=== PATIENT | male | born 1955 | race Caucasian/White ===

== ENCOUNTER 2017-11-15 07:37 | Outpatient (REF) | payer BC, SELFPAY ==
[2017-11-15 12:35] LABS: Anion Gap 7.7 mmol/L (3-11); BUN 14 mg/dL (7-18); CO2 29.3 mmol/L (21.0-32.0); CREATININE 1.16 mg/dL (0.70-1.30); Calcium 8.5 mg/dL (8.5-10.1); Chloride 104 mmol/L (98-107); Cholesterol 198 mg/dL (50-200); Glucose 160 mg/dL (70-100); HDL Cholesterol 51 mg/dL (40-60); LDL CHOLESTEROL 117 mg/dL (<100); Potassium 4.8 mmol/L (3.5-5.1); Sodium 141 mmol/L (136-145); Triglyceride 145 mg/dL (30-150)
[2017-11-15 12:40] LABS: Hemoglobin A1C 7.3 % (4.5-6.2)
== END 2017-11-15 07:57 ==
LOC: NCHCN 07:37
PROVIDERS: PCP Internal Medicine; Visit Provider Nurse Practitioner Family
DX: E78.5 Hyperlipidemia, unspecified (principal); I10 Essential (primary) hypertension; E11.9 Type 2 diabetes mellitus without complications
CPT/HCPCS: 80048; 80061; 83721; 83036

== ENCOUNTER 2018-11-18 10:08 | Outpatient (REF) | payer BC, SELFPAY ==
[2018-11-18 13:37] LABS: COMMENT (LAB VIEW ONLY) 149.45 mg/dL; Microalb ug/mg Crea 8.8 ug/mg Cr
== END 2018-11-18 10:28 ==
LOC: NCHCN 10:08
PROVIDERS: PCP Nurse Practitioner Family; Visit Provider Nurse Practitioner Family
DX: E11.9 Type 2 diabetes mellitus without complications (principal)
CPT/HCPCS: 82043; 82570

== ENCOUNTER 2019-02-14 12:36 | Outpatient (REF) | payer BC, SELFPAY ==
[2019-02-14 13:18] LABS: Hemoglobin A1C 7.4 % (3.8-5.6)
[2019-02-14 13:23] LABS: Anion Gap 8.1 mmol/L (3-11); BUN 17 mg/dL (7-18); CO2 29.9 mmol/L (21.0-32.0); CREATININE 1.03 mg/dL (0.70-1.30); Calcium 9.2 mg/dL (8.5-10.1); Calculated LDL 147 mg/dL; Chloride 102 mmol/L (98-107); Cholesterol 223 mg/dL (<200); Glucose 175 mg/dL (74-106); HDL Cholesterol 54 mg/dL (40-60); Potassium 4.6 mmol/L (3.5-5.1); Sodium 140 mmol/L (136-145); Triglyceride 112 mg/dL (<150)
== END 2019-02-14 12:56 ==
LOC: NCHCN 12:36
PROVIDERS: PCP Nurse Practitioner Family; Visit Provider Nurse Practitioner Family
DX: E11.9 Type 2 diabetes mellitus without complications (principal); I10 Essential (primary) hypertension; E78.5 Hyperlipidemia, unspecified
CPT/HCPCS: 80048; 80061; 83036

== ENCOUNTER 2020-04-23 11:56 | Outpatient (REF) | payer BC, SELFPAY ==
[2020-04-23 19:31] LABS: Hemoglobin A1C 7.7 % (<5.7)
[2020-04-23 19:43] LABS: Anion Gap 11.4 mmol/L (3-11); BUN 16 mg/dL (7-18); CO2 24.6 mmol/L (21.0-32.0); CREATININE 1.1 mg/dL (0.70-1.30); Calcium 9.3 mg/dL (8.5-10.1); Calculated LDL 97 mg/dL (<100); Chloride 106 mmol/L (98-107); Cholesterol 179 mg/dL (<200); Glucose 168 mg/dL (74-106); HDL Cholesterol 50 mg/dL (40-60); Potassium 4.7 mmol/L (3.5-5.1); Sodium 142 mmol/L (136-145); Triglyceride 161 mg/dL (<150)
[2020-04-23 19:50] LABS: COMMENT (LAB VIEW ONLY) 145.99 mg/dL; Microalb ug/mg Crea 11.9 ug/mg Cr
== END 2020-04-23 11:57 | disposition home or self-care (01) ==
LOC: NCHCN 11:56
PROVIDERS: PCP Nurse Practitioner Family; Visit Provider Nurse Practitioner Family
DX: E11.9 Type 2 diabetes mellitus without complications (principal); I10 Essential (primary) hypertension
CPT/HCPCS: 80048; 80061; 82043; 82570; 83036

== ENCOUNTER 2020-11-14 11:52 | Outpatient (CLI) | payer BC, SELFPAY ==
--- NOTE | 2020-11-14 | DI.RAD_ITS ---
Exam(s) XR FOOT LT COMPLETE EXAM: XR FOOT LT COMPLETE CLINICAL HISTORY: PAIN IN LT FOOT, M79.672, CONCERN FOR SPRAIN VS FRACTURE. TECHNIQUE: 2D digital imaging was performed. COMPARISON: No exams were available for comparison FINDINGS: Three views reveal no evidence of fracture nor diastasis of the Lisfranc joint. There is advanced na rrowing degenerative changes in the great toe metatarsophalangeal joint. Also osteophytes at this le sha. Small inferior calcaneal spur is noted. IMPRESSION: DATA REPOSITORY: RADIATION DOSE DELIVERED:
--- NOTE | 2020-11-14 | DI.RAD_ITS ---
Exam(s) XR ANKLE LT COMPLETE EXAM: XR ANKLE LT COMPLETE CLINICAL HISTORY: PAIN IN LT ANKLE, M25.572, CONCERN FOR SPRAIN VS FRACTURE. TECHNIQUE: 2D digital imaging was performed. COMPARISON: No exams were available for comparison FINDINGS: There is no evidence of acute fracture nor widening of the mortise. Prominent posterior process of t he talus noted. No evidence of osseous tarsal coalition. IMPRESSION: DATA REPOSITORY: RADIATION DOSE DELIVERED:
--- NOTE | 2020-11-14 17:05 | DI.VRAD_ITS ---
PROCEDURE INFORMATION: Exam: XR Left Foot Exam date and time: 11/14/2020 4:41 PM Age: 64 years old Clinical indication: Other: Pain in lt ankle, m25.572, concern for sprain vs fracture TECHNIQUE: Imaging protocol: XR Left foot. Views: 3 or more views. COMPARISON: CR XR ANKLE LT COMPLETE 11/14/2020 4:36 PM FINDINGS: Bones/joints: There is severe joint space narrowing with eburnation of bone involving the 1st MTP articulation. Hypertrophic spurring noted. Minimal inferior calcaneal spur noted. Soft tissues: Normal. IMPRESSION: Degenerative changes. No evidence for fracture. Dictated and Authenticated by: Izzy Parish MD. Ordering:ROSALINA Qiu MD
--- NOTE | 2020-11-14 17:05 | DI.VRAD_ITS ---
PROCEDURE INFORMATION: Exam: XR Left Ankle Exam date and time: 11/14/2020 4:41 PM Age: 64 years old Clinical indication: Other: Pain in lt foot, m79.672, concern for sprain vs fracture TECHNIQUE: Imaging protocol: XR Left ankle. Views: 3 or more views. COMPARISON: No relevant prior studies available. FINDINGS: Bones/joints: Normal. Soft tissues: Normal. IMPRESSION: No evidence for fracture. Dictated and Authenticated by: Izzy Parish MD. Ordering:ROSALINA Qiu MD
== END 2020-11-14 12:12 ==
PROVIDERS: PCP Nurse Practitioner Family; Visit Provider Physician Assistant Medical
DX: M25.572 Pain in left ankle and joints of left foot (principal); M79.672 Pain in left foot; M19.072 Primary osteoarthritis, left ankle and foot
CPT/HCPCS: 73610; 73630

== ENCOUNTER 2020-11-14 16:53 | Outpatient (REF) | payer BC, SELFPAY ==
[2020-11-14 21:22] LABS: Abs Immature Grans 0.02 10^3/uL (0.0-0.06); Absolute Basophil Count 0.08 10^3/uL (0.0-0.2); Absolute Eosinophil Count 0.09 10^3/uL (0.0-0.7); Absolute Lymphocyte Count 1.96 10^3/uL (1.2-3.4); Basophils % 1.2; Eosinophils % 1.4; HCT 41.5 % (40.0-50.0); HGB 14.1 g/dL (13.5-17.5); Immature Grans % 0.3; Lymphocytes % 30.4; MCH 31.3 pg (27.0-33.0); MCV 92.2 fL (80-95); MPV 12.8 fL (8.0-11.0); Monocytes % 9.3; Neutrophils % 57.4; Nucleated RBC 0 %; Platelet Count 184 10^3/uL (130-400); RDW 11.7 % (11.8-14.1); RDW-SD 39.6 fL; WBC 6.45 10^3/uL (4.4-10.8)
[2020-11-14 22:35] LABS: Anion Gap 8.6 mmol/L (3-11); BUN 15 mg/dL (7-18); CO2 27.4 mmol/L (21.0-32.0); CREATININE 1.1 mg/dL (0.70-1.30); Calcium 8.9 mg/dL (8.5-10.1); Chloride 107 mmol/L (98-107); Glucose 165 mg/dL (74-106); Potassium 4.3 mmol/L (3.5-5.1); Sodium 143 mmol/L (136-145)
== END 2020-11-14 16:54 | disposition home or self-care (01) ==
LOC: LBN 16:53
PROVIDERS: PCP Nurse Practitioner Family; Visit Provider Physician Assistant Medical
DX: Z13.9 Encounter for screening, unspecified (principal)
CPT/HCPCS: 80048; 85025

== ENCOUNTER 2021-05-23 15:08 | Outpatient (REF) | payer BC, SELFPAY ==
[2021-05-29 06:36] LABS: ACh Receptor(Muscle)Binding Ab 0.12 nmol/L (<=0.02)
== END 2021-05-23 15:09 | disposition home or self-care (01) ==
LOC: LBN 15:08
PROVIDERS: PCP Nurse Practitioner Family; Visit Provider Psychiatry & Neurology Neurology
DX: H02.401 Unspecified ptosis of right eyelid (principal)
CPT/HCPCS: 83519

== ENCOUNTER 2021-08-26 14:06 | Outpatient (REF) | payer BC, SELFPAY ==
[2021-08-26 16:05] LABS: Anion Gap 12.2 mmol/L (3-11); BUN 28 mg/dL (7-18); CO2 21.8 mmol/L (21.0-32.0); CREATININE 1.3 mg/dL (0.70-1.30); Calcium 9.4 mg/dL (8.5-10.1); Calculated LDL 85 mg/dL (<100); Chloride 102 mmol/L (98-107); Cholesterol 171 mg/dL (<200); Estimated GFR 55.75 (mL/min/1.73m2); Glucose 169 mg/dL (74-106); HDL Cholesterol 62 mg/dL (40-60); Potassium 5.3 mmol/L (3.5-5.1); Sodium 136 mmol/L (136-145); Triglyceride 123 mg/dL (<150)
== END 2021-08-26 14:07 | disposition home or self-care (01) ==
LOC: NCHCN 14:06
PROVIDERS: PCP Nurse Practitioner Family; Visit Provider Nurse Practitioner Family
DX: I10 Essential (primary) hypertension (principal); E78.5 Hyperlipidemia, unspecified; E11.9 Type 2 diabetes mellitus without complications; G70.00 Myasthenia gravis without (acute) exacerbation
CPT/HCPCS: 80048; 80061

== ENCOUNTER 2022-12-08 16:50 | Outpatient (REF) | payer BC, SELFPAY ==
[2022-12-08 16:57] LABS: Abs Immature Grans 0.02 10^3/uL (0.0-0.06); Absolute Basophil Count 0.09 10^3/uL (0.0-0.2); Absolute Eosinophil Count 0.07 10^3/uL (0.0-0.7); Absolute Lymphocyte Count 1.75 10^3/uL (1.2-3.4); Absolute Neutrophil Count 3.66 10^3/uL (1.2-6.7); Basophils % 1.5; Eosinophils % 1.1; HCT 45.7 % (40.0-50.0); HGB 15.7 g/dL (13.5-17.5); Immature Grans % 0.3; Lymphocytes % 28.3; MCH 31.6 pg (27.0-33.0); MCHC 34.4 % (32.0-36.0); MCV 92 fL (80-95); MPV 12.5 fL (8.0-11.0); Monocytes % 9.7; Neutrophils % 59.1; Platelet Count 209 10^3/uL (130-400); RBC 4.97 10^6/uL (4.36-5.78); RDW 11.7 % (11.8-14.1); RDW-SD 39.4 fL; WBC 6.19 10^3/uL (4.4-10.8)
[2022-12-08 17:10] LABS: ALT 32 U/L (16-63); AST 19 U/L (15-37); Albumin 3.6 g/dL (3.4-5.0); Alkaline Phosphatase 83 U/L (46-116); Anion Gap 10.3 mmol/L (3-11); BUN 27 mg/dL (7-18); Bilirubin, Total 0.9 mg/dL (0.2-1.0); CO2 23.7 mmol/L (21.0-32.0); CREATININE 1.1 mg/dL (0.70-1.30); Calculated LDL 117 mg/dL (<100); Chloride 104 mmol/L (98-107); Cholesterol 200 mg/dL (<200); Estimated GFR 74.96 (mL/min/1.73m2); Glucose 148 mg/dL (74-106); HDL Cholesterol 58 mg/dL (40-60); Potassium 4.6 mmol/L (3.5-5.1); Sodium 138 mmol/L (136-145); Total Protein 7.3 g/dL (6.4-8.2); Triglyceride 128 mg/dL (<150)
== END 2022-12-08 16:51 | disposition home or self-care (01) ==
LOC: NCHCN 16:50
PROVIDERS: PCP Nurse Practitioner Family; Visit Provider Nurse Practitioner Family
DX: E11.9 Type 2 diabetes mellitus without complications (principal); I10 Essential (primary) hypertension; E78.5 Hyperlipidemia, unspecified; K21.9 Gastro-esophageal reflux disease without esophagitis
CPT/HCPCS: 80053; 80061; 85025

== ENCOUNTER 2023-03-10 13:13 | Outpatient (REF) | payer MEDICARE, BC, SELFPAY ==
[2023-03-10 15:55] LABS: Hemoglobin A1C 6.9 % (<5.7)
== END 2023-03-10 13:14 | disposition home or self-care (01) ==
LOC: NCHCN 13:13
PROVIDERS: PCP Nurse Practitioner Family; Visit Provider Nurse Practitioner Family
DX: E11.9 Type 2 diabetes mellitus without complications (principal)
CPT/HCPCS: 83036

== ENCOUNTER → 2023-09-21 09:27 | Outpatient (BNVA) | payer MEDICARE, BC, SELFPAY | PROVIDERS: Referring Provider Nurse Practitioner Family; Visit Provider Psychiatry & Neurology Neurology | DX: H02.401 Unspecified ptosis of right eyelid (principal); G70.00 Myasthenia gravis without (acute) exacerbation; R26.89 Other abnormalities of gait and mobility | CPT/HCPCS: 99442 ==

== ENCOUNTER 2023-10-28 03:40 | Outpatient (CLI) | payer MEDICARE, BC, SELFPAY ==
[2023-10-28 15:38] LABS: ALT 25 U/L (16-63); AST 12 U/L (15-37); Albumin 3.2 g/dL (3.4-5.0); Alkaline Phosphatase 96 U/L (46-116); Anion Gap 12.5 mmol/L (3-11); BUN 21 mg/dL (7-18); Bilirubin, Total 0.58 mg/dL (0.2-1.0); CO2 22.5 mmol/L (21.0-32.0); CREATININE 1.5 mg/dL (0.70-1.30); Calcium 8.7 mg/dL (8.5-10.1); Calculated LDL 50 mg/dL (<100); Chloride 103 mmol/L (98-107); Cholesterol 132 mg/dL (<200); Estimated GFR 51.35 (mL/min/1.73m2); Glucose 317 mg/dL (74-106); HDL Cholesterol 46 mg/dL (40-60); Potassium 4.1 mmol/L (3.5-5.1); Sodium 138 mmol/L (136-145); Triglyceride 183 mg/dL (<150)
[2023-10-31 19:16] LABS: Anaplasma phagocytophilum Negative (Negative); B. miyamotoi PCR Negative (Negative); Babesia divergens/MO-1 Negative (Negative); Babesia duncani Negative (Negative); Babesia microti Negative (Negative); Ehrlichia chaffeensis Negative (Negative); Ehrlichia ewingii/canis Negative (Negative); Ehrlichia muris eauclairensis Negative (Negative)
== END 2023-10-28 03:41 | disposition home or self-care (01) ==
LOC: LBO 03:40
PROVIDERS: PCP Nurse Practitioner Family; Visit Provider Nurse Practitioner Family
DX: W57.XXXA Bitten or stung by nonvenomous insect and other nonvenomous arthropods, initial encounter (principal); E78.5 Hyperlipidemia, unspecified; I10 Essential (primary) hypertension; S60.562A Insect bite (nonvenomous) of left hand, initial encounter
CPT/HCPCS: 36415; 80053; 80061; 87798

== ENCOUNTER 2023-11-19 07:32 | Day surgery (SDC) | payer MEDICARE, BC, SELFPAY ==
--- NOTE | 2023-11-18 19:05 | W.PM.DSUDISC ---
Date of service: 11/19/23 Time of Service: 10:21 Discharge Plan Disposition Patient Disposition: Home Condition: Good Discharge Details Reason For Visit: screening colonoscopy Attending Provider: Aakash Hernandez Primary Care Provider: MIRIAM PEREYRA Home Meds and New Rx's Prescriptions: Continued Ozempic 1 mg/dose (2 mg/1.5 mL) pen injector 1 mg subcut QWEEK cimetidine 200 mg tablet 200 mg PO QACHS ezetimibe 10 mg tablet 10 mg PO DAILY pyridostigmine bromide 60 mg tablet 60 mg PO BID Qty: 180 3RF metformin 500 MG tablet 1,000 mg PO BID sildenafil [Viagra] 100 mg tablet 100 mg PO DAILY PRN Patient Comments: Take 0.5-1 tab by mouth as needed insulin glargine [Lantus Solostar U-100 Insulin] 100 unit/mL (3 mL) insulin pen 40 unit subcut QPM Patient Comments: per med list [facility] 03/31/21 lisinopril 10 mg tablet 20 mg PO BID Patient Comments: per med list sent 03/31/21 from [facility] Discontinued bisacodyl [Dulcolax (bisacodyl)] 5 mg tablet,delayed release (DR/EC) 5 mg PO ONCE Qty: 4 0RF Rx Instructions: Take per colonoscopy instructions provided by ordering providers office polyethylene glycol 3350 17 gram/dose powder 17 g PO ONCE Qty: 238 0RF Rx Instructions: Take per colonoscopy instructions provided by ordering providers office Discharge Instructions Instructions: Colon polyps, Diverticulosis Additional Instructions: Arcenio, it was great meeting you today, and I hope you are comfortable during the procedure. I did find and remove a total of 7 polyps today. This will be sent off for testing. Once I know the nature of the polyps, I will be in touch regarding timing of your next colonoscopy. At the current time, I am inclined to repeat it at the 1 year home given the nature of the polyp that you had removed previously, combined with the number of polyps today. However, let me see the results formally before making any final decisions. If you need anything, or have any questions in the meantime, please do not hesitate to ask. 1. If tolerated, consume a soft, low fiber diet for 1-2 days. 2[address] Do not drive, drink alcohol, operate machinery, make critical decisions, or do activities that require coordination or balance for 24 hours. 3. Because air was put into your colon during the procedure, expelling air from your rectum (passing gas or farting) is normal. 4. You may not have a bowel movement for 1-3 days because of the colonoscopy prep. This is normal. 5. Go directly to the emergency room if you notice any of the following: Develop chills (warm to touch), or if you have a thermometer and your temperature is above 101 Difficulty breathing or difficultly swallowing Persistent vomiting Severe abdominal pain, other than gas cramps Severe chest pain Black, tarry stools Any bleeding ? exceeding one tablespoon 6. Call your physician if the site where your intravenous was started becomes red, swollen, painful, and warm to touch. 7. Your physician has reviewed your pre-procedure medications. Please continue to take those medications as previously ordered. You will be given specific information/education regarding any changes to your medications before leaving. Activity:: Activity as Tolerated Diet:: As Tolerated Discharge Orders Discharge Orders: Discharge Order (Routine); Ordered 11/18/23 Ordered By: Aakash Hernandez DS: Diagnosis Discharge Diagnosis (1) Encounter for screening colonoscopy: Status: Acute Asessment and Plan: Follow-up on polypectomy results
--- NOTE | 2023-11-18 19:07 | W.COLOREPORT ---
Date of service: 11/19/23 Time of Service: 10:22 Colonoscopy Report Date of procedure: 11/19/23 Pre-op diagnosis general: screening colonsocopy Post-op diagnosis procedure note: other (Colon polyps diverticulosis) Procedure: colonoscopy With polypectomy Surgeon: Aakash Hernandez Anesthesia Type: General:No Airway Estimated blood loss (mL): 10 Pathology: other (Ascending colon polyps x 2, polyps at 85, 75, 70, 40, and 30 cm) Complications: None Disposition: same day Indications: Troy is a 67 year old man with a history of adenomatous polyps who needs his next screening colonoscopy Prep: Miralax/Dulcolax Procedure Start Time: 09:32 Procedure End Time: 10:15 Retraction Time: 35 Findings: Sigmoid diverticulosis, colon polyps that 85, 75, 70, 40, and 30 cm, and 2 ascending colon polyps Procedure Description: After the induction of anesthesia, and with the patient in left lateral decubitus position, I began by performing an external anorectal exam.? Perineum and skin were normal, as was the anal verge.? There was no evidence of external hemorrhoids.? Next, I performed a digital rectal exam.? I did not appreciate any abnormal findings.? Next, I advanced a colonoscope into the rectal vault.? I performed retroflexion.? This appeared normal.? Using insufflation, I then advanced the colonoscope beyond the rectal folds and into the sigmoid colon before advancing towards the cecum.? There is sigmoid diverticulosis.? The scope was noted to be in the cecum by identification of the ileocecal valve and appendiceal orifice.? In the ascending colon were 2 polyps. 1 was about 0.25 cm, the other was about 0.75 cm. The smaller of the 2 was removed with cold forceps, and the larger polyp was removed with a energize snare polypectomy. Larger polyp was 2 large to removed by way of suction polypectomy, therefore it was retrieved with suction along the length of the colon. I reintroduced the colonoscope, and advance back to the cecum. I then began withdrawing the colonoscope using repeated irrigation as necessary for full evaluation of the colonic mucosa. I found polyps at 85, 75, 70, 40, and 30 cm from the anus. The polyp at 75 cm was about 1 cm in size. This was also too large to remove through the suction port, and needed to be retrieved manually. The other polyps were removed with a combination of cold forcep, as well as cold snare polypectomy with suction. When the scope was withdrawn to the level of the rectum, great care was taken to examine portions of the rectal folds.? Finally, the scope was withdrawn and the patient was brought to the same-day surgery recovery unit as the anesthetic wore off. ?The findings and instructions were shared with the patient prior to discharge. [place] Bowel Prep [place] Bowel Prep Right Colon: 2 Left Colon: 2 Transverse Colon: 2 Total Score: 6
[2023-11-19 08:02] VITALS: BP 129/97; PULSE 94; RESP 16; TEMP 36.5; O2SAT 99
[2023-11-19] MEDS: Lactated Ringers 1,000 ML 80 ML IV (08:09)
--- NOTE | 2023-11-19 08:44 | ANES.PREOP_ITS ---
General Info Date of Service Date Performed: 11/19/23 Height: 6 ft 1 in Weight: 99.337 kg Body Mass Index (BMI): 28.8 Surgical Procedure: Operation Date: 11/19/23 09:20 Proposed Procedure Side Surgeon manjinder Hernandez MD Meds Allergies and Home Medications Allergies Allergy/AdvReac Type Severity Reaction Status Date / Time No Known Allergies Allergy Verified 11/19/23 07:56 Home Medication ?Medication ?Instructions ?Recorded metformin 500 mg tablet 1,000 mg PO BID 12/11/13 insulin glargine 100 unit/mL (3 40 unit subcut QPM 04/16/21 mL) subcutaneous pen (Lantus Solostar U-100 Insulin) sildenafil 100 mg tablet (Viagra) 100 mg PO DAILY PRN 04/16/21 semaglutide 1 mg/dose (2 mg/1.5 1 mg subcut QWEEK 09/22/22 mL) subcutaneous pen injector (Ozempic) cimetidine 200 mg tablet 200 mg PO QACHS 09/21/23 ezetimibe 10 mg tablet 10 mg PO DAILY 09/21/23 pyridostigmine bromide 60 mg tablet 60 mg PO BID #180 tabs 09/21/23 lisinopril 10 mg tablet 20 mg PO BID 10/12/23 Current Visit Medications: Current Medications Generic Name Dose Route Start Last Admin Trade Name Freq PRN Reason Stop Dose Admin Hyoscyamine Sulfate 0.125 mg 11/18/23 19:08 Hyoscyamine 0.125 Mg Sl/Oral/Chew SL 12/18/23 19:07 DIRECTED PRN Ringer's Solution 1,000 mls @ 80 mls/hr 11/19/23 06:00 11/19/23 08:09 IV 11/19/23 23:59 80 mls/hr INFUSION DOMINICK Administration IV Miscellaneous Supplies 1 each 11/19/23 06:00 Iv Access IV 11/19/23 23:59 DIRECTED DOMINICK Ondansetron HCl 4 mg 11/18/23 19:08 Ondansetron 4 Mg/2 Ml Vial IVP 12/18/23 19:07 Q4H PRN PRN Nausea / Vomiting Sodium Chloride 0 ml 11/19/23 06:00 Normal Saline Flush 10 Ml Syr IV 11/19/23 23:59 PRN PRN Sodium Chloride 0 ml 11/19/23 06:00 Normal Saline 10 Ml Vial IJ 11/19/23 23:59 DIRECTED PRN Sterile Water 0 ml 11/19/23 06:00 Water,Injection,Sterile 10 Ml Vial IJ 11/19/23 23:59 DIRECTED PRN PFSH Active Problems Active Problems: Problem Status Onset Code Encounter for screening colonoscopy Acute Z12.11 Imbalance Acute R26.89 Achilles tendinosis of right ankle Acute M67.873 Myasthenia gravis Chronic G70.00 Ptosis of eyelid, right Acute H02.401 Ptosis Acute H02.409 Rupture of left Achilles tendon Acute 10/26/20 S86.012A Medical History Medical History GERD (gastroesophageal reflux disease) Hyperlipidemia Hypertension Type 2 diabetes mellitus Erectile dysfunction Achilles tendinitis, left leg Localized swelling of left lower leg Left ankle pain Foot pain, left Benign hypertension Diabetes mellitus Surgical History Surgical History Hx of colonoscopy Vasectomy 1995 Excision, Lipoma Tobacco Smoking/Tobacco Use Status: Never Alcohol Alcohol Intake: current Alcohol intake frequency: 0-2 drinks per day Alcohol type: beer Substance Use Substance use: Never Substance use type: former substance user Details: alcohol:t-2. Vital Signs and Lab Results Vital Signs Most Recent Vital Signs in EMR: Most Recent Vital Signs Temp Pulse Resp BP Pulse Ox 36.5 C 94 H 16 129/97 H 99 11/19/23 08:02 11/19/23 08:02 11/19/23 08:02 11/19/23 08:02 11/19/23 08:02 Point of Care Results Point of Care Results: Finger Stick Blood Glucose 167 11/19/23 08:12 Lab Results Blood Type / Crossmatch: No Data to Display Complete Blood Count: No Data to Display Complete Metabolic Panel: Sodium 138 mmol/L (136-145) 10/28/23 15:01 Potassium 4.1 mmol/L (3.5-5.1) 10/28/23 15:01 Chloride 103 mmol/L (98-107) 10/28/23 15:01 Carbon Dioxide 22.5 mmol/L (21.0-32.0) 10/28/23 15:01 BUN 21 mg/dL (7-18) H 10/28/23 15:01 Creatinine 1.5 mg/dL (0.70-1.30) H 10/28/23 15:01 Est GFR (CKD-EPI 2020) 51.35 (mL/min/1.73m2) 10/28/23 15:01 Calcium 8.7 mg/dL (8.5-10.1) 10/28/23 15:01 Albumin 3.2 g/dL (3.4-5.0) L 10/28/23 15:01 Glucose 317 mg/dL (74-106) H 10/28/23 15:01 Liver Function Panel: Alanine Aminotransferase (ALT/SGPT) 25 U/L (16-63) 10/28/23 15: 01 Aspartate Amino Transf (AST/SGOT) 12 U/L (15-37) L 10/28/23 15: 01 Coagulation Panel: No Data to Display Cardiac Panel: No Data to Display Arterial Blood Gas: No Data to Display Venous Blood Gas: No Data to Display Pancreas Panel: No Data to Display Thyroid Panel: No Data to Display Infectious Disease: No Data to Display Blood Cultures: No Data to Display Toxicology Panel: No Data to Display Anesthesia Assessment and Plan Anesthesia History Personal History: No History of Anesthesia Complications Family History: No Family History of Anesthesia Complications Exercise Tolerance Exercise Tolerance: Metabolic Equivalents>4 Pertinent Negatives Pertinent Negatives: No Symptoms of GERD (controlled with meds), No Major Cardiovascular Symptoms or Complaints, No Major Pulmonary Symptoms or Complaints and No History of CVA/TIA Cardiac & Pulmonary Exam Cardiac Exam: Normal S1/S2 Heart Sounds Pulmonary Exam: Clear Bilateral Breath Sounds Implantable Cardiac Device Does patient have a Pacemaker or an ICD?: No Airway Exam Known Difficult Airway: No Mallampati Class: 1 Mouth Opening: Normal (> 3cm) Thyromental Distance: Greater than 3 cm Neck Range of Motion: Full ROM Neck Circumference: Normal Teeth Condition: Normal Dentition and Loose or Chipped (some broken molars none loose per pt. ) ASA Classification ASA Score: ASA 3 Emergency Case?: No NPO Status NPO Status: NPO Clears >2 hours, Solids >8 hours Anesthesia Plan Resuscitation Status: Full Code Anesthesia Technique: General Anesthesia Airway Planned: Natural Airway Monitors Used: Standard Monitors
[2023-11-19 09:21] VITALS: BMI 28.8
--- NOTE | 2023-11-19 09:40 | BOWEL_PTH ---
PATIENT: rToy Ellison LOC: [facility] U#:[id number] AGE/SX: 67/M ROOM: RE11/19/[address]: Aakash Hernandez MD : [id number] BED: DIS: 11/19/2023 SPEC #: [id number] RECD: 11/19/23 12:12 STATUS: [facility] #: [id number] HAILEY: 11/19/23 09:[address]: Aakash Hernandez DEPT: Surgical Specimen RECD BY: Alfreda Holbrook ENTERED: 11/19/23 12:16 SP TYPE: Bowel OTHR DR: MIRIAM PEREYRA, SYED Tissues: 1 - BIOPSY BOWEL 2 - BIOPSY BOWEL 3 - BIOPSY BOWEL 4 - BIOPSY BOWEL 5 - BIOPSY BOWEL 6 - BIOPSY BOWEL 7 - BIOPSY BOWEL Procedures: GROSS AND MICRO LEVEL 4 Comments: [id number]
[2023-11-19 10:20] VITALS: BP 118/85; PULSE 86; RESP 16; TEMP 36; O2SAT 100
[2023-11-19 10:50] VITALS: BP 134/86; PULSE 81; RESP 16; TEMP 36.1; O2SAT 100
--- NOTE | 2023-11-19 10:53 | W.ANESPOSTOP ---
Postoperative Evaluation Date, Time and Location Date Performed: 11/19/23 Time Performed: 10:22 Patient Location: Day Surgery Unit Vital Signs Most Recent Imported Vital Signs: Most Recent Vital Signs Temp Pulse Resp BP Pulse Ox 36 C L 86 16 118/85 100 11/19/23 10:20 11/19/23 10:20 11/19/23 10:20 11/19/23 10:20 11/19/23 10:20 Pain Score Most Recent Pain Score: Most Recent Pain Score Pain Level 0 11/19/23 10:20 Assessment Mental Status: Awake (Alert & Oriented to Patient Baseline) Airway and Respiratory Function: Patent airway with normal (patient baseline) respiratory exam Cardiovascular Function: Hemodynamically Stable Hydration Status: Adequately Hydrated Nausea & Vomiting: No Nausea or Vomiting Pain: Pt. Denies Any Pain Peripheral Nerve Block: Patient did not receive a nerve block
== END 2023-11-19 11:05 | disposition home or self-care (01) ==
LOC: SUR 07:33
PROVIDERS: PCP Nurse Practitioner Family; Visit Provider Surgery
PROC: 0DJD8ZZ Inspection of Lower Intestinal Tract, Via Natural or Artificial Opening Endoscopic (ICD-10-PCS; CPT 45378; principal; 2023-11-19 09:15)
DX: Z12.11 Encounter for screening for malignant neoplasm of colon (principal); D12.2 Benign neoplasm of ascending colon; D12.3 Benign neoplasm of transverse colon; D12.4 Benign neoplasm of descending colon; D12.5 Benign neoplasm of sigmoid colon
CPT/HCPCS: 45385; 45380; 88305; J2704

== ENCOUNTER 2024-06-01 01:09 | Outpatient (CLI) | payer MEDICARE, BC, SELFPAY ==
--- NOTE | 2024-06-01 08:15 | DI.RAD_ITS ---
Exam(s) XR FOOT LT COMPLETE EXAM: XR FOOT LT COMPLETE CLINICAL HISTORY: Left foot pain, M79.672. TECHNIQUE: 2D digital imaging was performed. Three views. COMPARISON: CR,XR XR FOOT LT COMPLETE from 11/14/2020 CR XR FOOT RT COMPLETE from 06/01/2024 FINDINGS: BONES: No acute fracture is present. No bony destructive lesion is seen. Small heel spurs. JOINTS: No dislocation present. There is severe narrowing of the 1st MTP joint space and prominent pe riarticular spurring. There is some flattening of the 1st metatarsal head and base of proximal phala nx. Degenerative changes are also noted at the interphalangeal joint of the great toe. There are baeza mmertoe deformities of the 2nd through 4th toes. There is spurring at the dorsal aspect of the navic ular. SOFT TISSUE: Normal. IMPRESSION: Severe degenerative changes of 1st MTP joint. DATA REPOSITORY: RADIATION DOSE DELIVERED:
--- NOTE | 2024-06-01 08:15 | DI.RAD_ITS ---
Exam(s) XR FOOT RT COMPLETE EXAM: XR FOOT RT COMPLETE CLINICAL HISTORY: Right foot pain, M79.671. TECHNIQUE: 2D digital imaging was performed. Three views. COMPARISON: None FINDINGS: BONES: No acute fracture is present. No bony destructive lesion is seen. Small plantar calcaneal spu r. JOINTS: No dislocation present. There are severe degenerative changes of the 1st MTP joint, with obl iteration of the joint space, periarticular spurring and subchondral cyst formation. There are hamme rtoe deformities. Spurring at the dorsal aspect of the navicular. SOFT TISSUE: Normal. IMPRESSION: Severe degenerative changes of the 1st MTP joint. DATA REPOSITORY: RADIATION DOSE DELIVERED:
== END 2024-06-01 01:29 ==
LOC: DI 01:10
PROVIDERS: PCP Nurse Practitioner Family; Visit Provider Podiatrist
DX: M19.072 Primary osteoarthritis, left ankle and foot (principal); M19.071 Primary osteoarthritis, right ankle and foot
CPT/HCPCS: 11750; 20600; 73630

== ENCOUNTER → 2024-06-22 08:35 | Outpatient (BNVA) | payer MEDICARE, BC, SELFPAY | PROVIDERS: PCP Nurse Practitioner Family; Referring Provider Nurse Practitioner Family; Visit Provider Podiatrist | DX: M20.22 Hallux rigidus, left foot (principal); M79.672 Pain in left foot; L84 Corns and callosities; L60.0 Ingrowing nail | CPT/HCPCS: 99213 ==

== ENCOUNTER 2024-09-06 18:37 | Outpatient (REF) | payer MEDICARE, BC, SELFPAY ==
[2024-09-06 17:28] LABS: Hemoglobin A1C 6.5 % (<5.7)
[2024-09-06 17:44] LABS: ALT 29 U/L (16-63); AST 18 U/L (15-37); Albumin 3.5 g/dL (3.4-5.0); Alkaline Phosphatase 121 U/L (46-116); Anion Gap 9.8 mmol/L (3-11); BUN 19 mg/dL (7-18); Bilirubin, Total 1.0 mg/dL (0.2-1.0); CO2 25.2 mmol/L (21.0-32.0); Calcium 9.5 mg/dL (8.5-10.1); Calculated LDL 86 mg/dL (<100); Chloride 102 mmol/L (98-107); Cholesterol 166 mg/dL (<200); Estimated GFR 60.59 (mL/min/1.73m2); Glucose 130 mg/dL (74-106); HDL Cholesterol 58 mg/dL (>or=40); Potassium 4.7 mmol/L (3.5-5.1); Sodium 137 mmol/L (136-145); Total Protein 7.4 g/dL (6.4-8.2); Triglyceride 113 mg/dL (<150)
[2024-09-06 18:05] LABS: COMMENT (LAB VIEW ONLY) 246.60 mg/dL; Microalb ug/mg Crea 13.6 ug/mg Cr
== END 2024-09-06 18:38 | disposition home or self-care (01) ==
LOC: NCHCN 18:37
PROVIDERS: PCP Nurse Practitioner Family; Visit Provider Nurse Practitioner Family
DX: E78.5 Hyperlipidemia, unspecified (principal); E11.9 Type 2 diabetes mellitus without complications
CPT/HCPCS: 80053; 80061; 82043; 82570; 83036

== ENCOUNTER → 2024-10-17 15:04 | Outpatient (BNVA) | payer MEDICARE, BC, SELFPAY | PROVIDERS: PCP Nurse Practitioner Family; Visit Provider Psychiatry & Neurology Neurology | DX: G70.00 Myasthenia gravis without (acute) exacerbation (principal); E11.59 Type 2 diabetes mellitus with other circulatory complications; I10 Essential (primary) hypertension | CPT/HCPCS: 99213 ==

== ENCOUNTER 2024-12-12 14:46 | Emergency (ER) | payer MEDICARE, BC, SELFPAY ==
[2024-12-12 14:49] VITALS: BP 162/89; PULSE 80; RESP 24; TEMP 36.7; O2SAT 97
[2024-12-12 14:53] VITALS: BP 162/89; PULSE 80; TEMP 36.7; O2SAT 97
--- NOTE | 2024-12-12 14:56 | W.ED.GENAD ---
Discharge Plan Discharge Details Chief Complaint: Abd Prob Clinical Impression: Hydronephrosis of left kidney, Ureterolithiasis, Mass of left kidney, Acute kidney injury Primary Care Provider: MIRIAM PEREYRA ED Provider: Isra Luis [place] Meds and New Rx's Prescriptions: No Action Ozempic 1 mg/dose (2 mg/1.5 mL) pen injector 1 mg subcut QWEEK ezetimibe 10 mg tablet 10 mg PO DAILY famotidine 40 mg tablet 40 mg PO DAILY neomycin-polymyxin B-dexameth [Maxitrol] 3.5mg/mL-10,000 unit/mL-0.1 % drops,suspension See Rx Instructions .Route Q12H Qty: 5 0RF Rx Instructions: Apply to the toe every 12 hours; Apply to the TOE. Do NOT apply to eyes. Discard once the toe is healed. metformin 500 MG tablet 1,000 mg PO BID sildenafil [Viagra] 100 mg tablet 100 mg PO DAILY PRN Patient Comments: Take 0.5-1 tab by mouth as needed insulin glargine [Lantus Solostar U-100 Insulin] 100 unit/mL (3 mL) insulin pen 40 unit subcut QPM Patient Comments: per med list [facility] 03/31/21 lisinopril 10 mg tablet 20 mg PO BID Patient Comments: per med list sent 03/31/21 from [facility] pyridostigmine bromide 60 mg tablet 60 mg PO DAILY HPI General Date/Time Provider Initiated Documentation: 12/12/24 14:56. HPI Narrative: [facility] This is an overall very well-appearing normothermic and not tachycardic 68-year-old male with left lower quadrant tenderness, decreased stool output concerning for the possibility of diverticulitis for which patient will undergo CT scan. No pain or proportion to suggest necrotizing soft tissue infection. No rash to abdomen to suggest zoster. No right lower quadrant tenderness to suggest appendicitis. Ureterolithiasis is also on the differential. Based on the patient's age AAA is also on the differential the patient is not a tobacco user and has no pulsatile masses. No right upper quadrant tenderness to suggest acute cholecystitis. No shortness of breath nor chest pain to suggest referred pain from PE. In the absence of chest pain I did not obtain an ECG. Will obtain basic labs treat with fentanyl ingestion for nausea and provide 500 cc of crystalloid. 3:45 PM CBC with mild bump in creatinine. GFR greater than [address] scan and provide hydration. No acute electrolyte abnormalities. CBC lacks anemia thrombocytopenia and leukocytosis. Reassuring lipase is not consistent with pancreatitis. 4:15 PM Received call from Dr. Reid from radiology. She noted that the patient had 2 left-sided ureteral stones causing mild hydronephrosis. Patient also reportedly had a suspicious left renal mass. I met with patient and advised him of his ureterallithiasis and left renal mass. Will push images to [facility] and touch base with nephrology to help arrange outpatient follow-up for likely biopsy. 4:47 PM I signed patient out to Dr. Franco pending nephrology consult at [facility]. If patient does not have a UTI and feels improved from a renal stone perspective he is appropriate for discharge. He will require outpatient analgesia. I have asked outdated coordinator Monet to have the patient seen next week by urology at an [facility]. HPI This is a patient with a history of type 2 diabetes presenting with abdominal pain. The patient began experiencing left-sided abdominal pain at 11:00 PM on 12/11/2024 while attempting to sleep, which resulted in a sleepless night. The pain has remained constant since its onset. He attempted to alleviate the discomfort with an enema this morning, suspecting constipation, a condition he does not typically experience. The enema provided temporary relief for approximately 1 to 2 hours before the pain returned to its original intensity. This is his first experience with such pain. He reports no fever, nausea, or vomiting. His last bowel movement was yesterday around noon, during which he felt normal. He has not noticed any rashes on his abdomen and has no history of kidney stones. He reports no presence of black or bloody stools. He experiences nausea when walking and feels slightly lightheaded. His last meal was at 10:30 PM on 12/11/2024, and he had a snack in the afternoon on 12/11/2024. He has been avoiding food due to fear of exacerbating his nausea. He consumes a shot and three beers every day. He takes metformin for his type 2 diabetes. He had a colonoscopy 08/2024, which revealed 7 polyps and diverticulosis. Exam General: Well-appearing in no acute distress speaking in complete sentences. Head: Normocephalic, atraumatic. Eye: Extraocular eye movements intact. No conjunctival injection. No scleral icterus. Ear, nose, mouth, throat: Grossly normal inspection. Normal voice, handling secretions normally. Neck: Trachea midline. Cardiovascular: Well-perfused distal extremities. Respiratory: Nonlabored respiration. Clear lungs bilaterally. Gastrointestinal: Nondistended abdomen. Soft. Left lower quadrant tenderness. No rebound. No guarding. No right lower quadrant tenderness. No rash to abdomen. Musculoskeletal: No edema. Moving all 4 extremities spontaneously. Skin: Normal for age and race, grossly normal temperature and turgor. No acute rash. Neurologic: Alert and appropriate, no apparent acute deficits. Psychiatric: Mood and manner are appropriate. Grooming and personal hygiene are appropriate. Related Data Home Medications ?Medication ?Instructions ?Recorded ?Confirmed metformin 500 mg tablet 1,000 mg PO BID 12/11/13 12/12/24 insulin glargine 100 unit/mL (3 40 unit subcut QPM 04/16/21 12/12/24 mL) subcutaneous pen (Lantus Solostar U-100 Insulin) sildenafil 100 mg tablet (Viagra) 100 mg PO DAILY PRN 04/16/21 10/17/24 semaglutide 1 mg/dose (2 mg/1.5 1 mg subcut QWEEK 09/22/22 12/12/24 mL) subcutaneous pen injector (Ozempic) ezetimibe 10 mg tablet 10 mg PO DAILY 09/21/23 12/12/24 lisinopril 10 mg tablet 20 mg PO BID 10/12/23 12/12/24 famotidine 40 mg tablet 40 mg PO DAILY 04/20/24 12/12/24 [id number] 3.5 See Rx Instructions .Route Q12H #5 06/01/24 12/12/24 mg/mL-10,000 unit/mL-0.1% eye mL drops (Maxitrol) pyridostigmine bromide 60 mg tablet 60 mg PO DAILY 12/12/24 12/12/24 Previous Rx's ?Medication ?Instructions ?Recorded [id number] 3.5 See Rx Instructions .Route Q12H #5 06/01/24 mg/mL-10,000 unit/mL-0.1% eye mL drops (Maxitrol) Allergies Allergy/AdvReac Type Severity Reaction Status Date / Time No Known Allergies Allergy Verified 12/12/24 14:51 General Stated Complaint: Abd Prob SHELL: 3 Course Vital Signs Vital signs: Vital Signs Temperature 36.7 C 12/12/24 14:49 Pulse 80 12/12/24 14:49 Blood Pressure 162/89 H 12/12/24 14:49 Pulse Oximetry 97 12/12/24 14:49 Temperature 36.7 C 12/12/24 14:53 Temperature Source Temporal Artery Scan 12/12/24 14:53 Pulse 80 12/12/24 14:53 Blood Pressure 162/89 H 12/12/24 14:53 Pulse Oximetry 97 12/12/24 14:53 PFSH All Active Problems (Updated 12/12/24 @ 16:26 by Isra Luis MD) Acute kidney injury (Acute) Mass of left kidney (Acute) Ureterolithiasis (Acute) Hydronephrosis of left kidney (Acute) Ingrown toenail (Acute) Corns and callosities (Acute) Hallux rigidus, left foot (Acute) Arthralgia of ankle (Acute) Arthritis of joint of toe (Acute) Steatosis of liver (Acute) Encounter for screening colonoscopy (Acute) Imbalance (Acute) Achilles tendinosis of right ankle (Acute) Myasthenia gravis (Chronic) Ptosis of eyelid, right (Acute) Ptosis (Acute) Rupture of left Achilles tendon (Acute 10/26/20) Medical History Seasonal allergic rhinitis Tubulovillous adenoma polyp of colon (~10/2023) Tubular adenoma of colon (~10/2023) Hyperplastic colon polyp (~10/2023) GERD (gastroesophageal reflux disease) Hyperlipidemia Hypertension Type 2 diabetes mellitus Erectile dysfunction Achilles tendinitis, left leg Localized swelling of left lower leg Left ankle pain Foot pain, left Benign hypertension Diabetes mellitus Surgical History Hx of colonoscopy (~11/19/23) Vasectomy 1995 Excision, Lipoma Family History Father , 58 diabetes Diabetes Hypertension Mother Headache Hypertension Brother Neuralgia Social History Smoking/Tobacco Use Status: Current every day Tobacco Type: cigarettes Years smoked: 1 Smoking risk assessment performed?: Yes Alcohol Intake: current Alcohol Intake frequency: 0-2 drinks per day Alcohol type: beer Drug use: Never Substance use type: former substance user Details: alcohol:t-2. Household members: none Housing: house Number of Children: 1 current occupation: [employer] Director Current gender identity: male Do you feel safe at home: Yes Do you feel safe in your relationship?: Yes PAWSS Have you Been Recently Intoxicated or Drunk Within the Last 30 days?: No Have you Ever Experienced Previous Episodes of Alcohol Withdrawal?: No Have you ever Experienced Withdrawal Seizures?: No Have you ever Experienced Delirium Tremens(DT)s?: No Have you ever undergone Alcohol Rehabilitation Treatment (i.e, inpt ot outpatient treatment programs)?: No Have you ever Experienced Blackouts?: No Have you ever Combined Alcohol with other Downers within the last 90 days?: No Have you ever Combined Alcohol with any other Substance of Abuse during the last 90 days?: No Positive Blood Alcohol level on Presentation? [PCS.BAL]: No Evidence of Increased Autonomic Activity (i.e. HR>120, tremor, sweating, agitation, nausea)?: No Result: 0
[2024-12-12 15:13] LABS: Abs Immature Grans 0.02 10^3/uL (0.0-0.06); HCT 41.7 % (40.0-50.0); HGB 14.1 g/dL (13.5-17.5); Immature Grans % 0.2 %; MCH 30.8 pg (27.0-33.0); MCHC 33.8 % (32.0-36.0); MCV 91 fL (80-95); MPV 10.5 fL (8.0-11.0); Platelet Count 252 10^3/uL (130-400); RBC 4.58 10^6/uL (4.36-5.78); RDW 11.8 % (11.8-14.1); RDW-SD 39.1 fL; WBC 10.53 10^3/uL (4.4-10.8)
[2024-12-12] MEDS: Normal Saline 500 ML IV ×2 (15:21→16:42)
[2024-12-12] MEDS: Ondansetron 4 MG/2 ML VIAL IVP (15:21)
[2024-12-12] MEDS: fentaNYL 100 MCG/2 ML VIAL 50 MCG IVP (15:21)
[2024-12-12 15:25] LABS: Lipase 27 U/L (<78)
[2024-12-12 15:36] LABS: ALT 26 U/L (16-63); AST 16 U/L (15-37); Albumin 3.8 g/dL (3.4-5.0); Alkaline Phosphatase 114 U/L (46-116); Anion Gap 10.6 mmol/L (3-11); BUN 24 mg/dL (7-18); Bilirubin, Total 1.0 mg/dL (0.2-1.0); CO2 24.4 mmol/L (21.0-32.0); Calcium 8.8 mg/dL (8.5-10.1); Chloride 101 mmol/L (98-107); Estimated GFR 41.00 (mL/min/1.73m2); Glucose 104 mg/dL (74-106); Potassium 4.6 mmol/L (3.5-5.1); Sodium 136 mmol/L (136-145); Total Protein 7.8 g/dL (6.4-8.2)
--- NOTE | 2024-12-12 15:59 | DI.CT_ITS ---
Exam(s) CT ABDOMEN PELVIS W EXAM: CT ABDOMEN PELVIS W CLINICAL HISTORY: Left lower quadrant pain. TECHNIQUE: Imaging Protocol: Axial computed tomography images with coronal and sagittal reformatted images were created and reviewed CONTRAST MATERIAL: Intravenous: Omnipaque 350 Contrast volume:100 ml Oral: no COMPARISON: CT CT CHEST WO from 06/19/2021 FINDINGS: ABDOMEN and PELVIS: Lung Bases: No acute findings. Moderate size hiatal hernia. Liver: Normal density. No suspicious mass. Gallbladder and biliary tract: No radiodense calculus. No wall thickening or pericholecystic fluid. No biliary dilation. Pancreas: Normal density. No abnormal calcifications or inflammatory process. No evidence of mass. Spleen: Normal. Kidneys: Normal size, contour and axis. Mild left hydronephrosis. There is a 4 millimeter stone in the upper left ureter and additional 3 millimeter stone seen a few cm inferiorly. Additional small nonobstructing stones are noted in the left kidney. There is also a suspicious enhancing mass measuring 6 cm at the lower pole. There is mild left perinephric stranding. A small simple cyst is noted at the lower pole of the right kidney. No right renal calculi or hydronephrosis. Adrenal glands: No masses seen. Vasculature: Abdominal aorta non-dilated. Soft tissues: Small fat containing left inguinal hernia. Bladder: Mild wall thickening. No calculi.No focal mass. Bowel: No obstruction. No bowel wall thickening. Appendix normal. Mild diverticulosis in the lower descending and sigmoid colon. No evidence of diverticulitis. Peritoneal cavity: No ascites. No focal collection. No mesenteric inflammatory response. No free air. Bones: Unremarkable for age. Reproductive organs: Enlarged prostate. No lytic or blastic lesions are identified Lymph nodes: 8 x 17 millimeter left para-aortic lymph node noted at the region of the upper pole of the left kidney. IMPRESSION:: Mild left hydronephrosis secondary to 2 stones measuring 4 and 3 millimeters in the upper ureter. 6 centimeters enhancing renal mass, suspicious for renal cell carcinoma. Urology consultation recommended. Findings called to Dr. Luis of the emergency department. Unexpected findings RADIATION DOSE DELIVERED: Total DLP DATA REPOSITORY: All CT scans at this facility are submitted to the National Radiology Data Registry (NRDR) Dose Index Registry (DIR) with the [employer] ([employer]). RADIATION OPTIMIZATION: All CT scans at this facility use at least one of these dose optimization techniques: automated exposure control; mA and/or kV adjustment per patient size (includes targeted exams where dose is matched to clinical indication); or iterative reconstruction.
[2024-12-12] MEDS: Normal Saline - Diluent 50 ML VIAL IJ (16:00)
[2024-12-12] MEDS: Normal Saline Flush 10 ML SYR IVP (16:00)
[2024-12-12] MEDS: Omnipaque 350 MG/ML 500 ML BTL-Imaging package IJ (16:00)
[2024-12-12] MEDS: Ketorolac 15 MG/ML VIAL IVP (16:07)
[2024-12-12] MEDS: MORPHine 10 MG/ML VIAL 6 MG IVP (16:42)
[2024-12-12 17:02] LABS: Glucose Negative (Negative)
[2024-12-12 17:10] LABS: C & S Indicated? No; WBC Negative HPF (0-5)
[2024-12-12] MEDS: MORPHine IR 15 MG TAB, 4 TABS/BTL PO (18:38)
[2024-12-12 18:42] VITALS: BP 152/87; PULSE 64; O2SAT 100
== END 2024-12-12 18:54 ==
PROVIDERS: Emergency Medicine; Emergency Provider General Practice; PCP Nurse Practitioner Family
DX: N20.2 Calculus of kidney with calculus of ureter (principal); R10.31 Right lower quadrant pain; N17.9 Acute kidney failure, unspecified; N13.39 Other hydronephrosis
CPT/HCPCS: 36415; 80053; 83690; 96361; 96374; 96375; 99285; 74177; 81003; 81015; 85025; 99284; J1885; J2270; J2405; J3010

== ENCOUNTER 2024-12-13 12:39 | Outpatient (CLI) | payer MEDICARE, BC, SELFPAY ==
--- NOTE | 2024-12-13 12:00 | DI.CT_ITS ---
Exam(s) CT CHEST WO EXAM: CT CHEST WO CLINICAL HISTORY: Left renal mass work up,n28.89. TECHNIQUE: Imaging protocol: Axial computed tomography images were obtained and coronal and sagittal reformatted images were created and reviewed. Computer aided detection (CAD) was utilized. CONTRAST MATERIAL: Noncontrast COMPARISON: CT CT CHEST WO from 06/19/2021 FINDINGS: Pulmonary parenchyma: No consolidation. No suspicious nodules. Calcified granuloma again noted at the right lung base. Interstitial changes: None. Emphysema: None. Tracheobronchial tree: No mucous plugging. No bronchiectasis . Pleura: No effusion or pneumothorax. Heart: The heart is mildly dilated. The coronary arteries show mild calcifications. Moderate size hiatal hernia. Aorta: Thoracic aorta non-dilated. Minimal atherosclerotic changes. Lymph nodes: No enlarged lymph nodes. Bones: Degenerative changes are seen. No evidence of compression fracture. Upper abdomen: Unremarkable. Soft tissues: Unremarkable. IMPRESSION: No evidence of metastatic disease or other acute abnormality in the chest. Hiatal hernia again noted. RADIATION DOSE DELIVERED: Total DLP Total DLP DATA REPOSITORY: All CT scans at this facility are submitted to the National Radiology Data Registry (NRDR) Dose Index Registry (DIR) with the [employer] ([employer]). RADIATION OPTIMIZATION: All CT scans at this facility use at least one of these dose optimization techniques: automated exposure control; mA and/or kV adjustment per patient size (includes targeted exams where dose is matched to clinical indication); or iterative reconstruction.
== END 2024-12-13 12:59 ==
LOC: DI 12:40
PROVIDERS: PCP Nurse Practitioner Family; Visit Provider General Practice
DX: N28.89 Other specified disorders of kidney and ureter (principal)
CPT/HCPCS: 71250

== ENCOUNTER 2024-12-13 14:00 | Outpatient (REF) | payer MEDICARE, BC, SELFPAY ==
[2024-12-26 15:40] LABS: Interpretation 100% Uric acid.
== END 2024-12-13 14:01 | disposition home or self-care (01) ==
LOC: NCHCN 14:00
PROVIDERS: PCP Nurse Practitioner Family; Visit Provider Nurse Practitioner Family
DX: N20.0 Calculus of kidney (principal)
CPT/HCPCS: 82365

== ENCOUNTER 2025-02-07 00:49 | Outpatient (CLI) | payer MEDICARE, BC, SELFPAY ==
[2025-02-07 15:24] LABS: Abs Immature Grans 0.03 10^3/uL (0.0-0.06); HCT 41.9 % (40.0-50.0); HGB 14.2 g/dL (13.5-17.5); Immature Grans % 0.3 %; MCH 30.9 pg (27.0-33.0); MCHC 33.9 % (32.0-36.0); MCV 91 fL (80-95); MPV 10.8 fL (8.0-11.0); Platelet Count 279 10^3/uL (130-400); RBC 4.59 10^6/uL (4.36-5.78); RDW 11.6 % (11.8-14.1); RDW-SD 38.5 fL; WBC 8.85 10^3/uL (4.4-10.8)
== END 2025-02-07 00:50 | disposition home or self-care (01) ==
PROVIDERS: PCP Nurse Practitioner Family; Visit Provider Urology
DX: N28.89 Other specified disorders of kidney and ureter (principal)
CPT/HCPCS: 36415; 85025; 87086